=== PATIENT | female | born 1980 | race Caucasian/White ===

== ENCOUNTER → 2021-04-21 08:04 | Outpatient (CLI) | payer BC, SELFPAY ==
[2021-04-21 10:17] LABS: Cholesterol 145 mg/dL (140-199); Glucose 87 mg/dL (70-100); HDL Cholesterol 65 mg/dL (40-60); LDL Cholesterol Calculated 67 mg/dL (<100); Triglycerides 67 mg/dL (35-150)
== END ==
PROVIDERS: PCP Registered Nurse; Referring Provider Registered Nurse; Visit Provider Registered Nurse
DX: Z00.00 Encounter for general adult medical examination without abnormal findings (principal); Z82.49 Family history of ischemic heart disease and other diseases of the circulatory system
CPT/HCPCS: 36415; 80061; 82947

== ENCOUNTER → 2021-07-27 11:51 | Outpatient (CLI) | payer BC, SELFPAY ==
[2021-07-27 14:03] LABS: COVID19 -Nasal RAPID POSITIVE (Negative)
== END ==
PROVIDERS: PCP Registered Nurse; Visit Provider Nurse Practitioner
DX: U07.1 COVID-19 (principal)
CPT/HCPCS: 87635

== ENCOUNTER 2022-10-22 23:49 | Emergency (ER) | payer BC, SELFPAY ==
[2022-10-23] VITALS: BP 128/81; PULSE 116; RESP 20; TEMP 37.4; O2SAT 98; BMI 21.6
[2022-10-23 00:50] LABS: Influenza A - CEPHEID Flu A POSITIVE (NEGATIVE); Influenza B - CEPHEID Flu B NEGATIVE (NEGATIVE); Respiratory Syncytial Virus Negative (Negative)
[2022-10-23 00:51] LABS: COVID-19 CEPHEID 4-PLEX PCR Negative (Negative)
--- NOTE | 2022-10-23 00:58 | ED.GENADULT ---
HPI - General Adult General Chief complaint: Upper Respiratory Symptoms Stated complaint: POSSIBLE FLU, FEVER 4 days, pain in back and neck Time Seen by Provider: 10/23/22 00:08 Source: patient Mode of arrival: Ambulatory History of Present Illness HPI narrative: Patient is a 41-year-old female who has had a fever and body aches for the past week. She also has kids at home who have been sick with similar symptoms. She has had COVID vaccine but no flu vaccine. Has had a cough. Is here because she had lower back discomfort when she woke up this morning. Related Data Previous Rx's Medication Instructions Recorded triamcinolone acetonide 0.5 % 1 applic topical TID #15 grams 06/01/22 topical cream Allergies Allergy/AdvReac Type Severity Reaction Status Date / Time codeine Allergy Intermediate Hives Verified 06/01/22 07:23 amoxicillin AdvReac Severe Hives Verified 06/01/22 07:23 Penicillins AdvReac Mild Verified 06/01/22 07:23 Review of Systems Constitutional Constitutional: Reports system reviewed and no additional complaints, except as documented ENT Ears, Nose, Mouth, and Throat: Reports system reviewed and no additional complaints, except as documented Respiratory Respiratory: Reports system reviewed and no additional complaints, except as documented Integumentary/Breasts Skin/Breast: Reports system reviewed and no additional complaints, except as documented Hematologic/Lymphatic On Anticoagulants: No Patient History Medical History Adult general medical exam Allergies Asthma Chicken pox Chronic back pain (~2015) Fractures Headache Heavy menstrual period (~1995) Irregular menstrual cycle (~1995) Migraines Sinusitis Surgical History (Updated 06/08/21 @ 21:41 by Kimberly Amor) Anesthesia History of removal of cyst (~1983) History of tumor (~1996) Precancerous lesion (~2014) Family History (Updated 06/08/21 @ 21:43 by Kimberly Amor) Mother Hypertension Grandfather Stroke Grandfather History of heart disease Hyperlipidemia Grandmother Cancer Hyperlipidemia Social History Smoking Status: Never smoker Smoking Status: Never smoker alcohol intake frequency: holidays/special occasions only Exam Initial Vital Signs Initial Vital Signs: Vital Signs Temperature 99.4 F 10/23/22 00:00 Pulse Rate 116 H 10/23/22 00:00 Respiratory Rate 20 10/23/22 00:00 Blood Pressure 128/81 10/23/22 00:00 Pulse Oximetry 98 10/23/22 00:00 Oxygen Delivery Method 10/23/22 00:00 Const General: cooperative and healthy appearing [facility] Head: normal to inspection and normocephalic Resp Effort & Inspection: normal respiratory effort Auscultation: clear to auscultation bilaterally Cardio Rate: regular rate Rhythm: regular rhythm Back/Spine/Pelvis Thoracic/Lumbar Spine: paraspinal tenderness Skin General: no rashes or lesions noted Neuro General: patient alert, patient awake and moves all extremities Extrem General: normal to inspection and capillary refill normal Course Orders Ordered: ED Orders 10/23/22 00:03 Covid-19 + FLU A/B + RSV - PCR Stat 10/23/22 00:15 Urine Culture Stat Urine Microscopic Routine Vital Signs Vital signs: Vital Signs - 8 hr 10/23/22 00:00 10/23/22 01:28 Temperature 99.4 F 99.2 F Pulse Rate 116 H 78 Respiratory Rate 20 16 Blood Pressure 128/81 118/68 Pulse Oximetry 98 97 Oxygen Delivery Method Room Air Room Air Medical Decision Making Lab Data Labs: Lab Results 10/23/22 Range/Units 00:03 SARS-CoV-2 (PCR) Negative (Negative) Influenza A (RT-PCR) Flu a positive H (NEGATIVE) Influenza B (RT-PCR) Flu b negative (NEGATIVE) RSV (PCR) Negative (Negative) Urine Dip Bedside Urine Glucose Negative Bedside Urine Bilirubin - Negative Bedside Urine Ketone +/- 5 Urine Specific [place] 1.005 Bedside Urine Occult Blood +++ Bedside Urine pH 6.5 Bedside Urine Protein - Negative Bedside Urine Urobilinogen - Negative Bedside Urine Nitrite - Negative Bedside Urine Leukocytes - Negative Esterase Point of care testing: Urine Dip Bedside Urine Glucose Negative Bedside Urine Bilirubin - Negative Bedside Urine Ketone +/- 5 Urine Specific [place] 1.005 Bedside Urine Occult Blood +++ Bedside Urine pH 6.5 Bedside Urine Protein - Negative Bedside Urine Urobilinogen - Negative Bedside Urine Nitrite - Negative Bedside Urine Leukocytes - Negative Esterase MDM Narrative Medical decision making narrative: Patient is influenza A positive. Has had symptoms for approximately 1 week. No indication for antibiotics. Urinalysis shows no signs of infection. We discussed the use of Tylenol and ibuprofen. Back pain most likely body aches. No respiratory distress. Will discharge patient home. Discharge Plan Departure Patient Disposition: Home Clinical Impression: Influenza A Instructions: Influenza Activity Restrictions/Additional Instructions: Your influenza test today was positive. You can continue to take Tylenol/ibuprofen for any fevers or body aches. Be sure to increase your fluid intake. Your urinalysis today did not show any signs of an infection. Return to the emergency department for any new symptoms. Prescriptions: No Action triamcinolone acetonide 0.5 % cream 1 applic topical TID Qty: 15 1RF Visit Report Forms: Patient Portal/API
[2022-10-23 01:28] VITALS: BP 118/68; PULSE 78; RESP 16; TEMP 37.3; O2SAT 97
[2022-10-23 01:50] LABS: Bacteria Urine None Seen; RBC Urine 5-10/HPF (0-5/HPF); Squamous Epithelial Cell Urine 0-1 /HPF (0-5/HPF); WBC Urine None Seen (0-5/HPF)
== END 2022-10-23 01:29 | disposition home or self-care (01) ==
PROVIDERS: Emergency Provider Emergency Medicine
DX: J10.1 Influenza due to other identified influenza virus with other respiratory manifestations (principal); Z20.822 Contact with and (suspected) exposure to COVID-19
CPT/HCPCS: 0241U; 81003; 81015; 87086; 99282

== ENCOUNTER → 2024-01-17 17:23 | Outpatient (CLI) | payer BC, SELFPAY | PROVIDERS: Visit Provider Physician Assistant Medical | DX: Z20.818 Contact with and (suspected) exposure to other bacterial communicable diseases (principal) | CPT/HCPCS: 87070; 87077; 87147 ==

== ENCOUNTER → 2024-01-20 11:41 | Outpatient (CLI) | payer BC, SELFPAY ==
[2024-01-20 13:02] LABS: Influenza A - CEPHEID Flu A NEGATIVE (NEGATIVE); Influenza B - CEPHEID Flu B NEGATIVE (NEGATIVE); Respiratory Syncytial Virus Negative (Negative)
[2024-01-20 13:03] LABS: COVID-19 CEPHEID 4-PLEX PCR Negative (Negative)
== END ==
PROVIDERS: Visit Provider Nurse Practitioner Family
DX: R05.3 Chronic cough (principal)
CPT/HCPCS: 0241U

== ENCOUNTER 2024-08-23 15:39 | Emergency (ER) | payer BC, SELFPAY ==
[2024-08-23 15:49] VITALS: BP 145/103; PULSE 85; RESP 18; TEMP 36.9; O2SAT 98; BMI 25.1
[2024-08-23 17:39] LABS: Add Manual Diff / Slide Review NO; Basophils Absolute Auto 100 /uL (0-100); Basophils Percent Auto 0.9 % (0-2); Eosinophils Absolute Auto 100 /uL (0-450); Eosinophils Percent Auto 1.1 % (2-4); Hematocrit 39.7 % (36-46); Hemoglobin 13.4 g/dL (12.0-16.0); Lymphocytes Absolute Auto 1800 /uL (1100-4500); Lymphocytes Percent Auto 20.8 % (25-40); Mean Corpuscular HGB Conc 33.6 % (30-36); Mean Corpuscular Hemoglobin 28.3 PG (26-34); Monocytes Absolute Auto 400 /uL (0-900); Neutrophils Absolute Auto 6100 /uL (1500-7000); Neutrophils Percent Auto 72.2 % (50-75); Platelet Count 281 X10^3/uL (150-400); Red Blood Cell Count 4.73 X10^6/uL (4.0-5.2); Red Cell Distribution Width 13.9 % (11.6-14.8); White Blood Cell Count 8.5 X10^3/uL (4.5-11.0)
[2024-08-23 17:45] LABS: Prothrombin Time 11.4 SECONDS (9.4-12.5)
[2024-08-23 17:47] LABS: PTT Partial Thromboplastin Tim 42 SECONDS (25.1-36.5)
[2024-08-23 17:50] LABS: Alanine Aminotransferase 24 IU/L (<35); Albumin 5.1 g/dL (3.5-5.0); Albumin Globulin Ratio 1.6 (1.0-2.8); Alkaline Phosphatase 81 U/L (38-126); Aspartate Aminotransferase 27 IU/L (14-36); BUN Creatinine Ratio 11.8 (6-22); Bilirubin Total 0.5 mg/dL (0.2-1.3); Blood Urea Nitrogen 9 mg/dL (7-17); Calcium 9.9 mg/dL (8.4-10.2); Carbon Dioxide 28 mmol/L (22-32); Chloride 103 mmol/L (98-107); Estimated Glomerular Filt Rate > 60 mL/min (>60); Globulin 3.1 g/dL (1.7-4.1); Glucose 103 mg/dL (70-100); HEMOLYSIS < 15 (0-50); Sodium 140 mmol/L (137-145); Total Protein 8.2 g/dL (6.3-8.2)
[2024-08-23] MEDS: PANTOPRAZOLE 40 MG VIAL 80 MG IV (17:55)
[2024-08-23 18:16] VITALS: BP 154/96; PULSE 79; O2SAT 98
--- NOTE | 2024-08-23 18:28 | ED.GIBLEED ---
HPI - GI Bleed General Chief complaint: GI Bleed Stated complaint: sent by [facility], blood from anus Time Seen by Provider: 08/23/24 18:06 Source: patient Mode of arrival: Ambulatory History of Present Illness HPI Narrative: 43-year-old female sent from the walk-in clinic for evaluation of 3 episodes of bright red blood per rectum. She states she was not particularly constipated. The last episode a bowel movement she had she thought was somewhat loose. No recent travel. No recent antibiotics. Did take 1 episode of an anti-inflammatory yesterday. Drinks alcohol only occasionally and does not take any anticoagulation medication. Is having some generalized lower abdominal pain and bloating. No urinary symptoms. No vaginal bleeding. Related Data Previous Rx's Medication Instructions Recorded triamcinolone acetonide 0.5 % 1 applic topical TID #15 grams 06/01/22 topical cream ondansetron 4 mg disintegrating 4 mg PO Q8H PRN nausea and 01/20/24 tablet vomiting #20 tabs Allergies Allergy/AdvReac Type Severity Reaction Status Date / Time codeine Allergy Intermediate Hives Verified 08/23/24 15:45 amoxicillin AdvReac Severe Hives Verified 08/23/24 15:45 Penicillins AdvReac Mild Verified 08/23/24 15:45 Review of Systems Review of Systems ROS Unobtainable: All systems reviewed & are unremarkable except as noted in HPI and below Patient History Medical History Asthma Allergies Migraines Headache Fractures Chronic back pain (~2015) Chicken pox Irregular menstrual cycle (~1995) Heavy menstrual period (~1995) Adult general medical exam Sinusitis Surgical History (Updated 06/08/21 @ 21:41 by Kimberly Amor) Anesthesia Precancerous lesion (~2014) History of tumor (~1996) History of removal of cyst (~1983) Family History (Updated 06/08/21 @ 21:43 by Kimberly Amor) Mother Hypertension Grandfather Stroke Grandfather History of heart disease Hyperlipidemia Grandmother Cancer Hyperlipidemia Social History Smoking Status: Never smoker Smoking Status: Never smoker alcohol intake frequency: a few times a month Substance Use Type: does not use Exam Initial Vital Signs Initial Vital Signs: Vital Signs Temperature 98.5 F 08/23/24 15:49 Pulse Rate 85 08/23/24 15:49 Respiratory Rate 18 08/23/24 15:49 Blood Pressure 145/103 H 08/23/24 15:49 Pulse Oximetry 98 08/23/24 15:49 Oxygen Delivery Method Room Air 08/23/24 15:49 Const General: cooperative, comfortable and No ill appearing HENNJ Head: normal to inspection and normocephalic Resp Effort & Inspection: normal respiratory effort Auscultation: clear to auscultation bilaterally Cardio Rate: regular rate GI Inspection: normal to inspection and non-distended Palpation: soft, No firm, No guarding and tender (Lower abdomen) Skin General: no rashes or lesions noted Neuro General: patient alert, patient awake and moves all extremities Extrem General: capillary refill normal Course Orders Ordered: ED Orders 08/23/24 17:30 Complete Blood Count AUTO DIFF Stat Comprehensive Metabolic Panel Stat PTT Partial Thromboplastin Mariano Stat Prothrombin Time INR Stat 08/23/24 18:29 CT abdomen pelvis w con Stat 08/23/24 18:38 Hemoglobin and Hematocrit Stat 08/23/24 18:40 Urine Microscopic Stat Discontinued Medications Ondansetron HCl (Ondansetron 4 Mg/2 Ml Inj) 4 mg IV NOW PRN PRN Reason: Nausea And Vomiting Ondansetron HCl (Ondansetron 4 Mg Odt) 4 mg SL NOW PRN PRN Reason: Nausea And Vomiting Pantoprazole Sodium (Pantoprazole 40 Mg Vial) 80 mg IV NOW ONE Stop: 08/23/24 15:56 Last Admin: 08/23/24 17:55 Dose: 80 mg Documented By: SB Vital Signs Vital signs: Vital Signs - 8 hr 08/23/24 15:49 08/23/24 18:16 08/23/24 18:30 Temperature 98.5 F Pulse Rate 85 79 78 Respiratory Rate 18 Blood Pressure 145/103 H 154/96 H Pulse Oximetry 98 98 97 Oxygen Delivery Method Room Air 08/23/24 18:30 08/23/24 19:00 08/23/24 19:30 Temperature 98.2 F Pulse Rate 74 75 Respiratory Rate 18 Blood Pressure 128/82 Pulse Oximetry 97 97 Oxygen Delivery Method Room Air 08/23/24 19:53 Temperature 98.4 F Pulse Rate 72 Respiratory Rate 18 Blood Pressure 129/82 Pulse Oximetry 98 Oxygen Delivery Method Room Air MDM - GI Bleed Lab Data Attestation: I reviewed the patient's lab results. 08/23/24 18:38 08/23/24 17:30 Labs: Lab Results 08/23/24 08/23/24 08/23/24 Range/Units 17:30 18:38 18:40 WBC 8.5 (4.5-11.0) X10^3/uL RBC 4.73 (4.0-5.2) X10^6/uL Hgb 13.4 12.8 (12.0-16.0) g/dL Hct 39.7 38.2 (36-46) % MCV 84.0 (80-100) fL MCH 28.3 (26-34) PG MCHC 33.6 (30-36) % RDW 13.9 (11.6-14.8) % Plt Count 281 (150-400) X10^3/uL Neut % (Auto) 72.2 (50-75) % Lymph % (Auto) 20.8 L (25-40) % [place] % (Auto) 5.0 (3-14) % Eos % (Auto) 1.1 L (2-4) % Baso % (Auto) 0.9 (0-2) % Neut # (Auto) 6100 (6785-1479) /uL Lymph # (Auto) 1800 (1673-5167) /uL [place] # (Auto) 400 (0-900) /uL Eos # (Auto) 100 (0-450) /uL Baso # (Auto) 100 (0-100) /uL PT 11.4 (9.4-12.5) SECONDS INR 1.0 (0.9-1.3) APTT 42 H (25.1-36.5) SECONDS Sodium 140 (137-145) mmol/L Potassium 4.0 (3.4-5.1) mmol/L Chloride 103 (98-107) mmol/L Carbon Dioxide 28 (22-32) mmol/L BUN 9 (7-17) mg/dL Creatinine 0.76 (0.52-1.04) mg/dL Estimated GFR > 60 (>60) mL/min BUN/Creatinine Ratio 11.8 (6-22) Glucose 103 H (70-100) mg/dL Calcium 9.9 (8.4-10.2) mg/dL Total Bilirubin 0.5 (0.2-1.3) mg/dL AST 27 (14-36) IU/L ALT 24 (<35) IU/L Alkaline Phosphatase 81 (38-126) U/L Total Protein 8.2 (6.3-8.2) g/dL Albumin 5.1 H (3.5-5.0) g/dL Globulin 3.1 (1.7-4.1) g/dL Albumin/Globulin Ratio 1.6 (1.0-2.8) Urine RBC 0-1/hpf (0-5/HPF) Urine WBC 0-1/hpf (0-5/HPF) Ur Squamous Epith Cells 0-1 /hpf (0-5/HPF) Urine Bacteria Occasional (0-1) (None) Ur Culture Indicated? Cult not indicated Vol Urine Centrifuged 10ml (spun) Urine Dip Bedside Urine Glucose Negative Bedside Urine Bilirubin - Negative Bedside Urine Ketone - Negative Urine Specific [place] 1.000 Bedside Urine Occult Blood + Bedside Urine pH 6.0 Bedside Urine Protein - Negative Bedside Urine Urobilinogen - Negative Bedside Urine Nitrite - Negative Bedside Urine Leukocytes - Negative Esterase Imaging Data CT scan - abdomen/pelvis: Radiologist's Impression: PROCEDURE: CT ABDOMEN PELVIS W CON INDICATIONS: Lower abdominal pain and rectal bleeding TECHNIQUE: After the administration of intravenous contrast, axial sections acquired from the lung bases to the pubic symphysis. Coronal and sagittal reformats were performed. For radiation dose reduction, the following was used: automated exposure control, adjustment of mA and/or kV according to patient size. COMPARISON: None. FINDINGS: Image quality: Diagnostic. Lower Chest: No significant findings. ABDOMEN: Liver: No solid mass. Gallbladder: No radiopaque gallstones or wall thickening. Biliary ducts: No biliary dilation. Pancreas: No ductal dilation. Spleen: Size is within normal limits. Adrenal Glands: No adrenal nodules. Kidneys and Ureters: No hydronephrosis. No solid mass. No complex renal cystic lesion which requires follow up. Stomach and Bowel: Normal colonic caliber, without significant wall thickening. Normal appendix. Peritoneum: No abnormal intraperitoneal fluid. No free air. Ventral Wall: No significant ventral hernia. Abdominal Nodes: No retroperitoneal or mesenteric adenopathy by size criteria. Vessels: Aorta and inferior vena cava are normal in size. PELVIS: Pelvic Organs: Unremarkable. Bladder: No bladder wall thickening, accounting for underdistention. Pelvic Nodes: No enlarged lymph nodes. Miscellaneous: No inguinal hernias are seen. Bones: No aggressive osseous abnormality. IMPRESSION: No acute findings within the abdomen or pelvis to explain patient's symptoms. MDM Narrative Medical decision making narrative: Labs are unremarkable. H&H is unchanged. CT scan is unremarkable. Vital signs unremarkable. Recommended that she contact the general surgery department for follow-up as she may need either a colonoscopy or further imaging studies. No indication for admission to the hospital or emergent surgical consultation. She was given return precautions. She expressed understanding and agreement. Discharge Plan Departure Patient Disposition: Home Clinical Impression: Bright red rectal bleeding Instructions: Gastrointestinal Bleeding Activity Restrictions/Additional Instructions: Recommend that you contact the General surgery Department with a number provided below for follow-up to discuss the indications for further testing such as a colonoscopy. Continue to take any medications as directed. Return to the emergency department for new symptoms. Prescriptions: No Action ondansetron 4 mg tablet,disintegrating 4 mg PO Q8H PRN (Reason: nausea and vomiting) Qty: 20 0RF triamcinolone acetonide 0.5 % cream 1 applic topical TID Qty: 15 1RF Referrals: George Montiel MD [Physician] - Miscellaneous,MD Makayla [Primary Care Provider] - Stand Alone Forms: Patient Portal/API
[2024-08-23 18:30] VITALS: BP 128/82; PULSE 78; O2SAT 97
[2024-08-23 18:42] LABS: Hematocrit 38.2 % (36-46); Hemoglobin 12.8 g/dL (12.0-16.0)
[2024-08-23 18:53] LABS: Bacteria Urine Occasional (0-1); Culture Indicated Urine Cult Not Indicated; RBC Urine 0-1/HPF (0-5/HPF); Urine Volume 10mL (spun); WBC Urine 0-1/HPF (0-5/HPF)
[2024-08-23 19:00] VITALS: PULSE 74; RESP 18; TEMP 36.8; O2SAT 97
[2024-08-23 19:05] LABS: Squamous Epithelial Cell Urine 0-1 /HPF (0-5/HPF)
[2024-08-23 19:30] VITALS: PULSE 75; O2SAT 97
[2024-08-23 19:53] VITALS: BP 129/82; PULSE 72; RESP 18; TEMP 36.9; O2SAT 98
== END 2024-08-23 19:58 | disposition home or self-care (01) ==
PROVIDERS: Emergency Medicine; Emergency Provider Emergency Medicine
DX: K62.5 Hemorrhage of anus and rectum (principal)
CPT/HCPCS: 36415; 74177; 80053; 81003; 81015; 85014; 85018; 85025; 85610; 85730; 96374; 99284; 99285; J2470; Q9967

== ENCOUNTER → 2024-08-31 17:28 | Outpatient (CLI) | payer BC, SELFPAY | PROVIDERS: Visit Provider Nurse Practitioner Family | DX: J02.9 Acute pharyngitis, unspecified (principal) | CPT/HCPCS: 87070 ==

== ENCOUNTER 2024-09-24 12:59 | Day surgery (SDC) | payer BC, SELFPAY ==
[2024-09-24 13:13] VITALS: BP 117/95; PULSE 112; RESP 16; TEMP 36.5; O2SAT 96
--- NOTE | 2024-09-24 13:32 | PM.HP.1 ---
History of Present Illness History of Present Illness Date Patient Seen: 09/24/24 Time Patient Seen: 13:33 Chief complaint: Colonoscopy Narrative: This is a 43-year-old white female who had an episode of bright red blood per rectum. She has never had a colonoscopy before. She is borderline anemic. [facility] Medical History (Updated 09/24/24 @ 13:34 by Kenji Zapata MD) Blood per rectum Asthma Allergies Migraines Headache Fractures Chronic back pain (~2015) Chicken pox Irregular menstrual cycle (~1995) Heavy menstrual period (~1995) Adult general medical exam Sinusitis Surgical History Anesthesia Precancerous lesion (~2014) History of tumor (~1996) History of removal of cyst (~1983) Family History Mother Hypertension Grandfather Stroke Grandfather History of heart disease Hyperlipidemia Grandmother Cancer Hyperlipidemia Social History marital status: details: [id number] mom /Pt's carried the pregnancies. number of children: 2 household members: spouse lives independently: Yes occupational status: unemployed Smoking Status: Never smoker alcohol intake: current substance use type: does not use Meds Home Medications and Allergies Home Medications Medication Instructions Recorded Confirmed Type triamcinolone acetonide 0.5 % 1 applic topical TID #15 grams 06/01/22 09/02/24 Rx topical cream doxycycline hyclate 100 mg capsule 100 mg PO BID #10 caps 08/31/24 09/02/24 Rx ondansetron HCl 4 mg tablet 4 mg PO Q8H PRN nausea and 08/31/24 09/02/24 Rx vomiting #14 tabs Allergies Allergy/AdvReac Type Severity Reaction Status Date / Time codeine Allergy Intermediate Hives Verified 09/24/24 13:27 amoxicillin AdvReac Severe Hives Verified 09/24/24 13:27 Penicillins AdvReac Mild Verified 09/24/24 13:27 Review of Systems Review of Systems ROS: Yes All systems reviewed with the patient and are negative except as otherwise documented Constitutional Constitutional: Reports system reviewed and no additional complaints, except as documented Eyes Eyes: Reports system reviewed and no additional complaints, except as documented ENT Ears, Nose, Mouth, and Throat: Yes system reviewed and no additional complaints, except as documented Cardiovascular Cardiovascular: Reports system reviewed and no additional complaints, except as documented Respiratory Respiratory: Reports system reviewed and no additional complaints, except as documented Gastrointestinal Gastrointestinal: Reports hematochezia and Reports change in stool character Genitourinary Genitourinary: Reports system reviewed and no additional complaints, except as documented Musculoskeletal Musculoskeletal: Reports system reviewed and no additional complaints, except as documented Integumentary/Breasts Skin/Breast: Reports system reviewed and no additional complaints, except as documented Neurologic Neurologic: Reports system reviewed and no additional complaints, except as documented Psychiatric Psychiatric: Reports system reviewed and no additional complaints, except as documented Endocrine Endocrine: Reports system reviewed and no additional complaints, except as documented Hematologic/Lymphatic Hematologic/Lymphatic: Reports system reviewed and no additional complaints, except as documented Allergic/Immunologic Allergic/Immunologic: Reports system reviewed and no additional complaints, except as documented Exam Vital Signs (past 8 hours): - 09/24/24 13:13 Temperature 97.7 F Pulse Rate 112 H Respiratory Rate 16 Blood Pressure 117/95 H Pulse Oximetry 96 Oxygen Delivery Method Room Air Oxygen Delivery Method Room Air Narrative Exam Narrative: Gen: NAD, sitting comfortably in bed, appears well HEENT: Sclera are anicteric, head is normocephalic and atraumatic, trachea is midline. CV: RRR, no JVD Resp: clear to auscultation bilaterally, equal chest wall movement bilaterally Abd: soft, nontender, normoactive bowel sounds Ext: no edema, full range of motion Neuro: Cranial nerves II-XII grossly intact, no focal deficits Skin: No erythema or ecchymosis Assessment & Plan Assessment and plan (1) Blood per rectum: Status: Acute Assessment & Plan narrative: Patient presents for initial screening colonoscopy Risks, benefits, alternatives to colonoscopy explained, including but not limited to bowel perforation or other serious complication requiring surgery at less than 1 in 5000 colonoscopies, abdominal pain, cramping or bleeding and less than 1% of colonoscopies, and the chances that we find a diagnosis that would require further intervention of about 2%. Patient agrees to proceed. Time-Based Coding :: [TOTAL MINUTES] spent with patient and on the chart (including review of chart, obtaining history, exam, reviewing outside data, placing orders, documenting exam and treatment plan, and counseling patient) on [DATE].
[2024-09-24 13:58] VITALS: BP 96/68; PULSE 94; RESP 12; TEMP 36.3; O2SAT 96
--- NOTE | 2024-09-24 13:58 | PM.OP.COLON ---
Operative Date/Time/Diagnoses Date of procedure: 09/24/24 Time of procedure: 13:58 Pre-op diagnosis: BRBPR Post-op diagnosis: same (internal hemorrhoids, non-bleeding, non-prolapsed) Procedure & Clinicians Study performed: colonoscopy Same procedure as scheduled: Yes Indications: Bright red blood per rectum Surgeon: Kenji Zapata Procedure Notes SCOAP/Timeout: Performed Procedure in detail: Time-out was performed. Mac was induced. Patient was placed in left lateral decubitus position. The perineum was inspected without any gross abnormality. Lubricated pediatric colonoscope was inserted and advanced to the cecum. The terminal ileum was intubated. The colonoscope was withdrawn slowly inspecting the circumference of the colon. Very small polyps may have been missed, prep quality was adequate. Retroflexed view of the rectum showed small, non prolapsed nonbleeding internal hemorrhoids. The scope was withdrawn the patient was taken to PACU in good condition. Scope withdrawal time: 8 Sedation minutes: 14 Findings: internal hemorrhoids Post-procedure Recommendations: Colonoscopy in 10 years Plan for aftercare: high fiber diet Follow up: as needed
[2024-09-24 14:03] VITALS: BP 102/68; PULSE 87; RESP 17; O2SAT 95
[2024-09-24 14:08] VITALS: BP 98/76; PULSE 92; RESP 14; TEMP 36.2; O2SAT 98
[2024-09-24 14:16] VITALS: BP 108/79; PULSE 92; RESP 14; TEMP 36.3; O2SAT 98
== END 2024-09-24 14:28 | disposition home or self-care (01) ==
PROVIDERS: Surgery; Referring Provider Surgery; Visit Provider Surgery
PROC: 0DJD8ZZ Inspection of Lower Intestinal Tract, Via Natural or Artificial Opening Endoscopic (ICD-10-PCS; CPT 45378; principal; 2024-09-24 15:00)
DX: K62.5 Hemorrhage of anus and rectum (principal); K64.8 Other hemorrhoids
CPT/HCPCS: 45378; J2704

== ENCOUNTER → 2024-10-19 15:12 | Outpatient (CLI) | payer BC, SELFPAY ==
--- NOTE | 2024-10-19 15:13 | DI.MG.S_ITS ---
BILATERAL DIGITAL SCREENING MAMMOGRAM 3D/2D WITH CAD: 10/19/2024 CLINICAL: Baseline exam. Routine screening. Family history of breast cancer. No prior exams were available for comparison. There are scattered areas of fibroglandular density (category b / 25%-50% glandular tissue). Current study was also evaluated with a Computer Aided Detection (CAD) system. No significant masses, calcifications, or other findings are seen in either breast. IMPRESSION: NEGATIVE There is no mammographic evidence of malignancy. A 1 year screening mammogram is recommended. Based on the Tyrer Cuzick model (a risk assessment model) the patient's lifetime risk is 16.2% and her 10 year risk is 2.7%. According to the ACR, ACS, and NCCN guidelines, an annual breast MRI exam along with mammogram is recommended if the patient's lifetime risk is 20% or greater. This exam was interpreted at Station ID: [id number]. NOTE: For mammograms, a report in lay terms will be sent to the patient. Approximately 15% of breast malignancies will not be visualized mammographically. In the management of a palpable breast mass, a negative mammogram must not discourage biopsy of a clinically suspicious lesion. Electronically Signed By: Aster Diaz M.D., Ph.D. sujit/percy:10/21/2024 02:58:38 letter sent: Normal Exam ACR BI-RADS Category 1: Negative
== END ==
PROVIDERS: PCP Nurse Practitioner Family; Referring Provider Nurse Practitioner Family; Visit Provider Nurse Practitioner Family
DX: Z12.31 Encounter for screening mammogram for malignant neoplasm of breast (principal); Z80.3 Family history of malignant neoplasm of breast
CPT/HCPCS: 77063; 77067

== ENCOUNTER → 2025-04-11 10:42 | Outpatient (CLI) | payer BC, SELFPAY | LOC: LAB 10:45 | PROVIDERS: PCP Nurse Practitioner Family; Visit Provider Nurse Practitioner Family | DX: J02.9 Acute pharyngitis, unspecified (principal) | CPT/HCPCS: 87070 ==

== ENCOUNTER 2025-10-06 22:43 | Emergency (ER) | payer BC, SELFPAY ==
[2025-10-06 22:45] VITALS: BP 148/82; PULSE 85; RESP 16; TEMP 36.5; O2SAT 98; BMI 24.4
--- NOTE | 2025-10-07 03:25 | ED.SKABFB ---
HPI - Skin/Abscess/Foreign Bdy General Chief complaint: Skin/Abscess/Foreign Body Stated complaint: Ingrown toenail Lt foot Time Seen by Provider: 10/07/25 02:45 Source: patient Mode of arrival: Ambulatory Limitations: no limitations History of Present Illness HPI narrative: Patient healthy 44-year-old presenting to day with ingrown left great toenail. Was placed on antibiotics September 25 clindamycin, she had it removed 2 days ago and did now having increasing pain redness and swelling. No fever no chills it is not streaking. She was doing okay the 1st night but now having significant pain. Related Data Previous Rx's ?Medication ?Instructions ?Recorded triamcinolone acetonide 0.5 % 1 applic topical TID #15 grams 06/01/22 topical cream clindamycin HCl 300 mg capsule 300 mg PO BID #10 caps 09/25/25 cephalexin 500 mg capsule 500 mg PO TID #21 caps 10/07/25 hydrocodone 5 mg-acetaminophen 325 1 tab PO Q6H PRN pain #10 tabs 10/07/25 mg tablet Allergies Allergy/AdvReac Type Severity Reaction Status Date / Time amoxicillin Allergy Severe Anaphylaxis Verified 10/06/25 22:46 Penicillins Allergy Severe Anaphylaxis Verified 10/06/25 22:46 codeine Allergy Intermediate Hives Verified 10/06/25 22:46 Patient History Medical History (Updated 10/07/25 @ 04:07 by Juliet Plata DO) Blood per rectum Asthma Allergies Migraines Headache Fractures Chronic back pain (~2015) Chicken pox Irregular menstrual cycle (~1995) Heavy menstrual period (~1995) Adult general medical exam Sinusitis Surgical History Anesthesia Precancerous lesion (~2014) History of tumor (~1996) History of removal of cyst (~1983) Family History Mother Hypertension Grandfather Stroke Grandfather History of heart disease Hyperlipidemia Grandmother Cancer Hyperlipidemia Social History marital status: details: [id number] mom /Pt's carried the pregnancies. number of children: 2 household members: spouse lives independently: Yes occupational status: unemployed Smoking Status: Never smoker alcohol intake: current substance use type: does not use Smoking Status: Never smoker alcohol intake frequency: a few times a month Exam Initial Vital Signs Initial Vital Signs: Vital Signs Temperature 97.7 F 10/06/25 22:45 Pulse Rate 85 10/06/25 22:45 Respiratory Rate 16 10/06/25 22:45 Blood Pressure 148/82 H 10/06/25 22:45 Pulse Oximetry 98 10/06/25 22:45 Oxygen Delivery Method Room Air 10/06/25 22:45 GENERAL: Well-appearing, well-nourished and in no acute distress. CARDIOVASCULAR: peripheral pulses in tact, cap refill <2 sec RESPIRATORY: No respiratory distress, speaks in full sentences without difficulty EXTREMITIES: Normal range of motion, no clubbing or edema. Neurovascularly intact NEUROLOGICAL: Cranial nerves II through XII grossly intact. Normal gait and speech. SKIN: Left great toe is erythematous no streaking it is noncircumferential it is just around the nail. Course Orders Ordered: Discontinued Medications Hydrocodone Bitart/Acetaminophen (Hydrocodone/Acet 5/325 Prepack) 1 bottle MISC DIRECTED ONE Stop: 10/07/25 04:04 Last Admin: 10/07/25 04:11 Dose: 1 bottle Cefazolin Sodium (Cephalexin 250 Mg Cap Prepack) 1 bottle MISC DIRECTED ONE Stop: 10/07/25 04:05 Last Admin: 10/07/25 04:11 Dose: 1 bottle Vital Signs Vital signs: Vital Signs - 8 hr 10/06/25 22:45 Temperature 97.7 F Pulse Rate 85 Respiratory Rate 16 Blood Pressure 148/82 H Pulse Oximetry 98 Oxygen Delivery Method Room Air MDM - Skin/Abscess/Foreign Bdy MDM Narrative Medical decision making narrative: Patient 44-year-old female presenting to day with left great toe pain and swelling. Had partial toenail removal for ingrown toenail 2 days ago now having increasing redness. Concern for cellulitis no obvious abscess, low suspicion for osteomyelitis. She is allergic to penicillin we discussed using Keflex. She is unsure what her reaction was she has not had any kind of -cillin since she was a child she is willing to try. She was previously put on clindamycin and she says it did not really help. She is given a prepack of Keflex and [place] here in the ED. Discharge Plan Departure Patient Disposition: Home Clinical Impression: Cellulitis Instructions: DI for Cellulitis -- Child Activity Restrictions/Additional Instructions: *You have been diagnosed with Keflex *What to do: Keep clean and dry monitor closely *Continue to take medications as directed Keflex 500 mg 3 times a day for 7 days [place] 1 tablet every 4 6 hours if needed for severe Motrin 600 mg every 6 hours for pikm-om-gyuaiktt pain *Follow up with your primary care provider in 2-3 days or call [phone] *Return to ER if you should have increasing pain redness fever [or] any new, worsening or concerning symptoms CONTROLLED SUBSTANCE DISCHARGE (Narcotoic/benzodiazepine/Flexeril/Phenergan) 1. You have been prescribed narcotic medications, it does have acetaminophen/Tylenol/paracetamol in it, DO NOT TAKE MORE THAN 4,00mg in 24 hours of Tylenol. TRAMADOL DOES NOT CONTAIN TYLENOL 2. Please understand that we cannot provide further refills of narcotics, benzodiazepines or controlled substances through the ED and her pain management will need to be through your provider. 3. While on these medications you cannot drive or operate heavy machinery. 4. You cannot sign legal documents or perform any duties such as this. 5. As long as you're taking opiate pain medications he should also be taking a stool softener such as Colace, Dulcolax, MiraLAX or prune juice, to help avoid constipation. Prescriptions: New hydrocodone-acetaminophen 5-325 mg tablet 1 tab PO Q6H PRN (Reason: pain) Qty: 10 0RF cephalexin 500 mg capsule 500 mg PO TID Qty: 21 0RF No Action clindamycin HCl 300 mg capsule 300 mg PO BID Qty: 10 0RF triamcinolone acetonide 0.5 % cream 1 applic topical TID Qty: 15 1RF Referrals: Brittnee Pastrana ARNP [Primary Care Provider, Medical] Stand Alone Forms: Patient Portal/API
== END 2025-10-07 04:16 | disposition home or self-care (01) ==
PROVIDERS: Emergency Provider Emergency Medicine; PCP Nurse Practitioner Family
DX: L03.032 Cellulitis of left toe (principal)
CPT/HCPCS: 99281

== ENCOUNTER 2025-10-08 13:24 | Emergency (ER) | payer BC, SELFPAY ==
[2025-10-08] VITALS (10 sets, daily range): BP systolic 125–156; BP diastolic 69–96; PULSE 67–93; RESP 18; TEMP 36.7–36.8; O2SAT 91–100; BMI 24.4
--- NOTE | 2025-10-08 14:35 | EKG_ITS ---
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
--- NOTE | 2025-10-08 14:36 | DI.RAD.S_ITS ---
PROCEDURE: XR FOOT LT MIN 3V INDICATIONS: swelling r/o osteo TECHNIQUE: 3 views of the foot were acquired. COMPARISON: None. FINDINGS: Bones: No fractures or dislocations. No suspicious bony lesions. No focal periosteal reaction or discrete osseous erosion. Soft tissues: No tibiotalar joint effusion. Achilles tendon appears normal. IMPRESSION: No acute bony abnormality. Dictated by: Antwon Pizarro M.D. on 10/08/2025 at 14:31 Approved by: Antwon Pizarro M.D. on 10/08/2025 at 14:32
--- NOTE | 2025-10-08 14:37 | ED_ITS ---
HPI - Skin/Abscess/Foreign Bdy General Chief complaint: Skin/Abscess/Foreign Body Stated complaint: lft big toe px, low grade fever this morning Time Seen by Provider: 10/08/25 14:24 Source: patient Mode of arrival: Ambulatory Limitations: no limitations History of Present Illness HPI narrative: This is a 44-year-old white female who presents to the emergency room with complaining of pain and swelling to left toe for the past 8 days. Patient states she initially went to a primary care doctor who placed her on 5 days of clindamycin. She then went to another doctor who switched it to Keflex. Since then the toe has become more swollen more erythematous and more tender. Patient did say that her primary care doctor did cut part of her toenail off. Patient says she did have a low-grade fever at home. There is no red streaking no edema beyond the toe. Patient denied any other symptoms. Related Data Previous Rx's ?Medication ?Instructions ?Recorded triamcinolone acetonide 0.5 % 1 applic topical TID #15 grams 06/01/22 topical cream clindamycin HCl 300 mg capsule 300 mg PO BID #10 caps 09/25/25 cephalexin 500 mg capsule 500 mg PO TID #21 caps 10/07 hydrocodone 5 mg-acetaminophen 325 1 tab PO Q6H PRN pa in #10 tabs 10/07/25 mg tablet oxycodone-acetaminophen 5 mg-325 1 tab PO Q6H PRN pain #14 tabs 10/08/25 mg tablet (Percocet) sulfamethoxazole 800 1 tab PO BID #20 tabs mg-trimethoprim 160 mg tablet (Bactrim DS) Allergies Allergy/AdvReac Type Severity Reaction Status Date / Time amoxicillin Allergy Severe Anaphylaxis Verified 10/06/25 22:46 Penicillins Allergy Severe Anaphylaxis Verified 10/06/25 22:46 codeine Allergy Intermediate Hives Verified 10/06/25 22:46 Review of Systems Review of Systems Narrative: GENERAL: Denies chills, fatigue, malaise, fever, sweats. HEENT: Denies sinus pain, ear pain, sore throat, difficulty swallowing, dizziness. RESPIRATORY: Denies dyspnea, cough, wheezing, hemoptysis, sputum. CARDIOVASCULAR: Denies chest pain, palpitations, orthopnea, edema, GASTROINTESTINAL: Denies nausea, vomiting, abdominal pain, diarrhea, constipation, melena. : Denies dysuria, frequency, incontinence, hematuria, urinary retention. MUSCULOSKELETAL: denies weakness, joint pain, or bony pain SKIN: See HPI NEUROLOGIC: Denies weakness, headache, numbness, change in speech, confusion, seizures, incoordination. PSYCHIATRIC: No concerning psychosocial issues. 12 point review of systems is negative except for those stated above Patient History Medical History (Updated 10/08/25 @ 18:19 by Stephen Delgado MD) Blood per rectum Asthma Allergies Migraines Headache Fractures Chronic back pain (~2015) Chicken pox Irregular menstrual cycle (~1995) Heavy menstrual period (~1995) Adult general medical exam Sinusitis Surgical History Anesthesia Precancerous lesion (~2014) History of tumor (~1996) History of removal of cyst (~1983) Family History Mother Hypertension Grandfather Stroke Grandfather History of heart disease Hyperlipidemia Grandmother Cancer Hyperlipidemia Social History marital status: details: [id number] mom /Pt's carried the pregnancies. number of children: 2 household members: spouse lives independently: Yes occupational status: unemployed Smoking Status: Never smoker alcohol intake: current substance use type: does not use Smoking Status: Never smoker alcohol intake frequency: a few times a month Exam Narrative Exam Narrative: GENERAL: [] year old patient appears stated age. Well-developed patient, in mild distress. HEAD: Atraumatic. Normocephalic. EYES: Pupils equal round and reactive. Extraocular motions intact. No scleral icterus. No injection or drainage. ENT: Nose without bleeding, purulent drainage. Throat without erythema, tonsillar hypertrophy or exudate. Airway patent. NECK: Trachea midline. Non tender CARDIOVASCULAR: Regular rate and rhythm without murmurs, gallops, or rubs. RESPIRATORY: Clear to auscultation. Breath sounds equal bilaterally. No wheezes, rales, or rhonchi. GASTROINTESTINAL: Abdomen soft, non-tender, nondistended. EXTREMITIES: Examination of the left great toe reveals marked edema erythema tenderness and some ecchymosis. The toe is neurovascularly intact.. BACK: Nontender without deformity or crepitance. No flank tenderness. NEURO: AOx3. SKIN: No rash or erythema of visible areas Initial Vital Signs Initial Vital Signs: Vital Signs Temperature 98.3 F 10/08/25 13:29 Pulse Rate 93 H 10/08/25 13:29 Respiratory Rate 18 10/08/25 13:29 Blood Pressure 156/93 H 10/08/25 13:29 Pulse Oximetry 99 10/08/25 13:29 Oxygen Delivery Method Room Air 10/08/25 13:29 Course Orders Ordered: ED Orders 10/08/25 14:35 EKG-12 Lead Stat 10/08/25 14:36 XR foot LT min 3V Stat 10/08/25 14:43 CRP [C-Reactive Protein Quant] Stat Complete Blood Count AUTO DIFF Stat Comprehensive Metabolic Panel Stat Erythrocyte Sedimentation Rate Stat Lactate (Lactic Acid) Stat Procalcitonin Stat 10/08/25 14:58 Blood Culture Stat 10/08/25 16:28 MR foot LT wo con Stat Vancomycin HCl (Vancomycin) 1,250 mg in 250 mls @ 250 mls/hr IV Q8H CATHLEEN Discontinued Medications Vancomycin HCl (Vancomycin) 1,250 mg in 250 mls @ 250 mls/hr IV NOW ONE Stop: 10/08/25 16:14 Last Infusion: 10/08/25 16:34 Dose: Infused Documented By: Admin: 10/08/25 15:17 Dose: 250 mls/hr Documented By: CRAIG Ondansetron HCl (Ondansetron 4 Mg/2 Ml Inj) 4 mg IV NOW ONE Stop: 10/08/25 15:51 Last Admin: 10/08/25 16:00 Dose: 4 mg Documented By: CRAIG Oxycodone/Acetaminophen (Oxycodone/Acetaminophen 5/325 Tablet) 1 tab PO NOW ONE Stop: 10/08/25 15:49 Last Admin: 10/08/25 16:00 Dose: 1 tab Documented By: CRAIG Vancomycin HCl (Vancomycin Per Pharmacy) 1 request MISC STAT STA Stop: 10/08/25 14:35 Last Admin: 10/08/25 15:50 Dose: 1 request Documented By: CRAIG Vital Signs Vital signs: Vital Signs - 8 hr 10/08/25 13:29 10/08/25 14:41 10/08/25 14:41 Temperature 98.3 F Pulse Rate 93 H 74 Respiratory Rate 18 Blood Pressure 156/93 H 141/96 H Pulse Oximetry 99 99 Oxygen Delivery Method Room Air 10/08/25 15:00 10/08/25 15:00 10/08/25 15:30 Temperature Pulse Rate 70 67 Respiratory Rate Blood Pressure 125/75 Pulse Oximetry 98 97 Oxygen Delivery Method Room Air 10/08/25 15:30 Temperature Pulse Rate Respiratory Rate Blood Pressure 134/88 Pulse Oximetry Oxygen Delivery Method MDM - Skin/Abscess/Foreign Bdy Lab Data 10/08/25 14:43 10/08/25 14:43 Labs: Lab Results 10/08/25 Range/Units 14:43 WBC 9.2 (4.5-11.0) X10^3/uL RBC 4.57 (4.0-5.2) X10^6/uL Hgb 13.0 (12.0-16.0) g/dL Hct 37.9 (36-46) % MCV 82.9 (80-100) fL MCH 28.5 (26-34) PG MCHC 34.3 (30-36) % RDW 13.2 (11.6-14.8) % Plt Count 256 (150-400) X10^3/uL Neut % (Auto) 79.7 H (50-75) % Lymph % (Auto) 14.5 L (25-40) % [place] % (Auto) 4.5 (3-14) % Eos % (Auto) 0.6 L (2-4) % Baso % (Auto) 0.7 (0-2) % Neut # (Auto) 7300 H (7934-6090) /uL Lymph # (Auto) 1300 (9091-4240) /uL [place] # (Auto) 400 (0-900) /uL Eos # (Auto) 100 (0-450) /uL Baso # (Auto) 100 (0-100) /uL ESR 11 (0-20) MM/HR Sodium 138 (137-145) mmol/L Potassium 4.2 (3.4-5.1) mmol/L Chloride 102 (98-107) mmol/L Carbon Dioxide 27 (22-32) mmol/L BUN 9 (7-17) mg/dL Creatinine 0.68 (0.52-1.04) mg/dL Estimated GFR > 60 (>60) mL/min BUN/Creatinine Ratio 13.2 (6-22) Glucose 104 H (70-99) mg/dL Lactate 1.2 (0.7-2.1) mmol/L Calcium 9.7 (8.4-10.2) mg/dL Total Bilirubin 0.4 (0.2-1.3) mg/dL AST 24 (14-36) IU/L ALT 19 (<35) IU/L Alkaline Phosphatase 70 (38-126) U/L C-Reactive Protein 0.5 (<1.0) mg/dL Total Protein 7.9 (6.3-8.2) g/dL Albumin 4.8 (3.5-5.0) g/dL Globulin 3.1 (1.7-4.1) g/dL Albumin/Globulin Ratio 1.5 (1.0-2.8) Procalcitonin < 0.030 (<0.5) ng/mL MDM Narrative Medical decision making narrative: The patient has CBC with normals chemistry within normal limits lactic acid was normal CRP and sed rate were normal. Patient's x-ray of the left foot read by the radiologist as negative at this point I spoke with the orthopedic surgeon on-call who came down and evaluated the patient she recommended a MRI to see if there is any fluid collection that could be drained. We did get an MRI which is positive only for cellulitis no evidence of osteomyelitis no evidence of fluid collection. At this point the patient probably has resistant Gram-positive infection. She is not diabetic she has already failed on clindamycin and Keflex. I will send the patient home on Zyvox 600 mg b.i.d. for 10 days I will also give her prescription for Percocet. At the request of the orthopedic surgeon the patient will be given crutches and nonweightbearing. As she can follow up with the orthopedic doctor at outpatient. Differential diagnosis paronychia felon abscess cellulitis Discharge Plan Departure Patient Disposition: Home Clinical Impression: Cellulitis Instructions: DI for Cellulitis -- Adult Prescriptions: New sulfamethoxazole-trimethoprim [Bactrim DS] 800-160 mg tablet 1 tab PO BID Qty: 20 0RF oxycodone-acetaminophen [Percocet] 5-325 mg tablet 1 tab PO Q6H PRN (Reason: pain) Qty: 14 0RF No Action clindamycin HCl 300 mg capsule 300 mg PO BID Qty: 10 0RF triamcinolone acetonide 0.5 % cream 1 applic topical TID Qty: 15 1RF hydrocodone-acetaminophen 5-325 mg tablet 1 tab PO Q6H PRN (Reason: pain) Qty: 10 0RF cephalexin 500 mg capsule 500 mg PO TID Qty: 21 0RF Referrals: Brittnee Pastrana ARNP [Primary Care Provider, Medical] - 10/10/25 Stand Alone Forms: Patient Portal/API
[2025-10-08 14:51] LABS: Add Manual Diff / Slide Review NO; Hematocrit 37.9 % (36-46); Hemoglobin 13.0 g/dL (12.0-16.0); Lymphocytes Absolute Auto 1300 /uL (1100-4500); Mean Corpuscular HGB Conc 34.3 % (30-36); Mean Corpuscular Hemoglobin 28.5 PG (26-34); Mean Corpuscular Volume 82.9 fL (80-100); Platelet Count 256 X10^3/uL (150-400)
[2025-10-08 15:04] LABS: Alanine Aminotransferase 19 IU/L (<35); Albumin 4.8 g/dL (3.5-5.0); Albumin Globulin Ratio 1.5 (1.0-2.8); Alkaline Phosphatase 70 U/L (38-126); Blood Urea Nitrogen 9 mg/dL (7-17); Calcium 9.7 mg/dL (8.4-10.2); Carbon Dioxide 27 mmol/L (22-32); Chloride 102 mmol/L (98-107); Estimated Glomerular Filt Rate > 60 mL/min (>60); Globulin 3.1 g/dL (1.7-4.1); Glucose 104 mg/dL (70-99); HEMOLYSIS 21 (0-50); Lactate (Lactic Acid) 1.2 mmol/L (0.7-2.1); Sodium 138 mmol/L (137-145); Total Protein 7.9 g/dL (6.3-8.2)
[2025-10-08 15:12] LABS: Potassium 4.2 mmol/L (3.4-5.1)
[2025-10-08] MEDS: VANCOMYCIN 1,250 MG/250 ML PIGGYBACK 250 MG IV (15:17)
[2025-10-08 15:21] LABS: Procalcitonin < 0.030 ng/mL (<0.5)
[2025-10-08] MEDS: VANCOMYCIN PER PHARMACY 1 REQUEST MISC (15:50)
[2025-10-08] MEDS: ONDANSETRON 4 MG/2 ML INJ IV (16:00)
--- NOTE | 2025-10-08 16:28 | DI.MRI.S_ITS ---
PROCEDURE: MRFOOT LT WO CON INDICATIONS: swelling of left great toe TECHNIQUE: Multiphasic, multisequence MRI of the forefoot was performed, without intravenous contrast administration. COMPARISON: [facility], CR, XR FOOT LT MIN 3V, 10/08/2025, 14:35. FINDINGS: Image quality: Diagnostic Bones and joints: No bone marrow contusions or metatarsal stress fractures. No focal bone marrow edema. No confluent marrow replacement on T1 sequence. The sesamoid bones appear in expected positions, without internal edema. No metatarsophalangeal joint degeneration. No intraosseous lesions. Soft tissues: The visualized plantar foot muscles demonstrate normal signal and bulk. Visualized flexor and extensor tendons appear intact, without tenosynovitis. The distal insertions of the peroneus brevis and longus tendons appear intact. The principal Lisfranc ligament appears intact. No soft tissue ganglion cysts or bursal fluid collections. Sagittal images demonstrate no evidence for plantar plate tears. Mild subcutaneous fat edema along the great toe. No confluent T2 hyperintense fluid collection. The edematous changes are greatest along the medial aspect of the great toe adjacent to the nail IMPRESSION: Subcutaneous fat and dermal edema of the great toe may represent cellulitis in the appropriate clinical context. No soft tissue fluid collection or MRI findings of osteomyelitis. Dictated by: Antwon Pizarro M.D. on 10/08/2025 at 16:17 Approved by: Antwon Pizarro M.D. on 10/08/2025 at 16:21
--- NOTE | 2025-10-08 17:48 | P.HP_ITS ---
History of Present Illness History of Present Illness Date Patient Seen: 10/08/25 Time Patient Seen: 04:30 Date of Onset of Symptoms: 09/25/25 Chief complaint: lft big toe px, low grade fever this morning Narrative: 44-year-old female with left great toe pain and redness since 09/25/2025. She was seen at the walk-in clinic and placed on clindamycin. Then on 10/05/2025 her ingrown toenail was removed. She states that the pain and redness increased after this was completed. She was seen in the emergency room on 10/07/2025 and placed on Keflex. Today she states that she had a low-grade fever. And she has continued to have pain. She has not had crutches yet or been completely nonweightbearing on the toe. Physical exam reveals a well-developed well-nourished 44-year-old in no acute distress Evaluation of her left great toe demonstrates that she has significant soft tissue swelling about the great toe with erythema on the dorsum mainly. She also has a partial removal of her great toenail on the medial aspect. she has tenderness to palpation most significantly over the medial aspect of the toenail. At the site of toenail removal. There is no fluctuance or fluid draining. She has no joint irritability of the interphalangeal joint. Or the metacarpophalangeal joint. There is no streaking up her foot. X-rays obtained of her left foot demonstrate no evidence of fracture, dislocation, soft tissue lesion, foreign body or any signs of osteomyelitis. She also had an MRI obtained of her left great toe which did not demonstrate any fluid collection or signs of osteomyelitis. She has soft tissue cellulitis. [facility] Medical History (Updated 10/08/25 @ 17:52 by Archana Jordan DO) Adult general medical exam Allergies Asthma Blood per rectum Chicken pox Chronic back pain (~2015) Fractures Headache Heavy menstrual period (~1995) Irregular menstrual cycle (~1995) Migraines Sinusitis Surgical History Anesthesia History of removal of cyst (~1983) History of tumor (~1996) Precancerous lesion (~2014) Family History Mother Hypertension Grandfather Stroke Grandfather History of heart disease Hyperlipidemia Grandmother Cancer Hyperlipidemia Social History marital status: details: [id number] mom /Pt's carried the pregnancies. number of children: 2 household members: spouse lives independently: Yes occupational status: unemployed Smoking Status: Never smoker alcohol intake: current substance use type: does not use Meds Home Medications and Allergies Home Medications ?Medication ?Instructions ?Recorded ?Confirmed ?Type triamcinolone acetonide 0.5 % 1 applic topical TID #15 grams 06/01/22 09/25/25 Rx topical cream clindamycin HCl 300 mg capsule 300 mg PO BID #10 caps 09/25/25 09/25/25 Rx cephalexin 500 mg capsule 500 mg PO TID #21 caps 10/07 Rx hydrocodone 5 mg-acetaminophen 325 1 tab PO Q6H PRN pa in #10 tabs 10/07/25 Rx mg tablet Allergies Allergy/AdvReac Type Severity Reaction Status Date / Time amoxicillin Allergy Severe Anaphylaxis Verified 10/06/25 22:46 Penicillins Allergy Severe Anaphylaxis Verified 10/06/25 22:46 codeine Allergy Intermediate Hives Verified 10/06/25 22:46 Exam Vital Signs (past 8 hours): - 10/08/25 13:29 10/08/25 14:41 10/08/25 14:41 Temperature 98.3 F Pulse Rate 93 H 74 Respiratory Rate 18 Blood Pressure 156/93 H 141/96 H Pulse Oximetry 99 99 Oxygen Delivery Method Room Air 10/08/25 15:00 10/08/25 15:00 10/08/25 15:30 Temperature Pulse Rate 70 67 Respiratory Rate Blood Pressure 125/75 Pulse Oximetry 98 97 Oxygen Delivery Method Room Air 10/08/25 15:30 Temperature Pulse Rate Respiratory Rate Blood Pressure 134/88 Pulse Oximetry Oxygen Delivery Method Oxygen Delivery Method Room Air Objective Labs 10/08/25 14:43 10/08/25 14:43 Labs: Laboratory Results - last 24 hr 10/08/25 14:43 WBC 9.2 RBC 4.57 Hgb 13.0 Hct 37.9 MCV 82.9 MCH 28.5 MCHC 34.3 RDW 13.2 Plt Count 256 Neut % (Auto) 79.7 H Lymph % (Auto) 14.5 L [place] % (Auto) 4.5 Eos % (Auto) 0.6 L Baso % (Auto) 0.7 Neut # (Auto) 7300 H Lymph # (Auto) 1300 [place] # (Auto) 400 Eos # (Auto) 100 Baso # (Auto) 100 ESR 11 Sodium 138 Potassium 4.2 Chloride 102 Carbon Dioxide 27 BUN 9 Creatinine 0.68 Estimated GFR > 60 BUN/Creatinine Ratio 13.2 Glucose 104 H Lactate 1.2 Calcium 9.7 Total Bilirubin 0.4 AST 24 ALT 19 Alkaline Phosphatase 70 C-Reactive Protein 0.5 Total Protein 7.9 Albumin 4.8 Globulin 3.1 Albumin/Globulin Ratio 1.5 Procalcitonin < 0.030 Assessment & Plan Assessment and plan (1) Cellulitis: Qualifiers: Site of cellulitis: extremity Site of cellulitis of extremity: toe L aterality: left Qualified Code(s): L03.032 - Cellulitis of left toe Status: Acute Plan There is no orthopedic surgical indication at this time. Antibiotics per emergency department physician. Time-Based Coding :: 30 spent with patient and on the chart (including review of chart, obtaining history, exam, reviewing outside data, placing orders, documenting exam and treatment plan, and counseling patient) on 10/08/25. PROFEE International Operations Manager Document charge(s): Yes
== END 2025-10-08 19:00 | disposition home or self-care (01) ==
PROVIDERS: Emergency Provider Emergency Medicine; PCP Nurse Practitioner Family
DX: L03.032 Cellulitis of left toe (principal)
CPT/HCPCS: 36415; 73630; 73718; 80053; 83605; 84145; 85025; 85651; 86140; 87040; 93005; 96365; 96375; 99284; J2405; J3375